=== PATIENT | female | born 1990 | race Caucasian/White ===

== ENCOUNTER → 2022-02-02 14:50 | Outpatient (CLI) | payer BC, SELFPAY ==
[2022-02-02 19:44] LABS: Basophils # 0.1 K/mm3 (0-0.2); Basophils % 0.8 % (0.1-2.0); Eosinophils % 0.3 % (0.1-12.0); Hematocrit 42.5 % (37.0-47.0); Hemoglobin 13.9 g/dL (12.2-16.2); Lymphocytes # 2.2 K/mm3 (0.7-4.5); Lymphocytes % 23.6 % (10-50); Mean Corpuscular HGB Conc 32.7 g/dL (31.8-35.4); Mean Corpuscular Hemoglobin 29.6 pg (27.0-31.2); Mean Corpuscular Volume 90.3 fl (81-99); Mean Platelet Volume 7.8 fl (7.4-10.4); Monocytes # 0.4 K/mm3 (0.1-1.0); Monocytes % 3.8 % (1.7-9.3); Neutrophils # 6.7 K/mm3 (1.8-7.8); Neutrophils % 71.5 % (37.0-80.0); Platelet Count 327 K/mm3 (142-424); White Blood Count 9.4 K/mm3 (4.8-10.8)
[2022-02-02 20:15] LABS: Alanine Aminotransferase 19 U/L (12-78); Albumin Level 4.5 g/dl (3.5-5.0); Albumin/Globulin Ratio 1.6 (1.1-1.8); Alkaline Phosphatase 71 U/L (38-126); Aspartate Amino Transferase 25 U/L (14-36); Blood Urea Nitrogen 15 mg/dl (7-17); Calcium 8.9 mg/dl (8.4-10.2); Carbon Dioxide 26 mmol/L (22.0-30.0); Chloride 101 mmol/L (98-107); Estimated Glomerular Filt Rate 146 ml/min (>60); GFR (African American) 177 ML/MIN (>60); Globulin 2.8 g/dL (1.3-3.2); Glucose 103 mg/dl (74-100); Sodium 142 mmol/L (136-145); Total Protein,Serum 7.3 g/dl (6.3-8.2)
[2022-02-02 20:29] LABS: Bilirubin,Total 0.1 mg/dl (0.2-1.3)
[2022-02-02 20:31] LABS: 25-OH Vitamin D, Total 39.6 ng/mL (30-100)
[2022-02-02 20:38] LABS: Hemoglobin A1C 5.4 % (4.0-6.0)
[2022-02-02 20:46] LABS: Thyroid Stimulating Hormone 0.31 uIU/mL (0.465-4.68)
== END ==
PROVIDERS: PCP Nurse Practitioner; Visit Provider Nurse Practitioner
DX: O99.810 Abnormal glucose complicating pregnancy (principal); F41.8 Other specified anxiety disorders
CPT/HCPCS: 80053; 82306; 83036; 84443; 85025

== ENCOUNTER 2024-11-03 11:15 | Outpatient (CLI) | payer BC, SELFPAY ==
--- OUTSIDE RECORDS SUMMARY | 2018-07-15 13:45 | XMS_ITS | Encounter Summary ---
Author Organization [place] [address] Care Team Providers Care Crop Nutrition Scientist Name Role Phone Nabil Bangura MD Primary Care Provider [phone] Encounter Details Date Type Department Care Team (Late st Contact Info) Description 07/15/2018 1:45 PM EDT Hospital Encounter [facility] NURSE [facility] [place] [address] Social History Tobacco Use Types Packs/Day Years Used Date Smoking Tobacco: Some Days Cigarettes Last attempted to quit: 04/16/2012 Smokeless Tobacco: Former Quit: 04/16/2012 Alcohol Use Standard Drinks/Week Comments No 0 (1 standard drink = 0.6 oz pur e alcohol) NO PHQ-2 Answer Date Recorded PHQ-2 Score 0 04/18/2019 Sexually Active Control Partners Comments Yes Male Comments No Sex and Gender Information Value Date Recorded Sex Assigned at Not on file Legal Sex Female 8:32 AM EDT Gender Identity Not on file Sexual Orientation Not on file COVID-19 Exposure Response Date Recorded In the last month, have you been in contact with someone who was confirmed or suspected to have Coronavirus / COVID-19? No / Unsure 03/19/2021 9:39 AM EST documented as of this encounter Functional Status * Cognitive and Functional Status Question Answer Date of Assessment Author Is the person deaf or does he/she have serious difficulty hearing? No 04/18/2019 4:35 PM Lizet Walker CCMA Is the person blind or does he/she have serious difficulty seeing even when wearing glasses? No 04/18/2019 4:35 PM Lizet Walker CCMA Does this person have seriou s difficulty walking or climbing stairs? No 04/18/2019 4:35 PM Lizet Walker CCMA Does this person have difficulty dressing or bathing? No 04/18/2019 4:35 PM EST Lizet Galvan CCMA * Alcohol Screening Score Answer Date of Assessment Author 0 08/20/2018 7:31 PM Delores Lopez, COMPA * Drug Screening Score Answer Date of Assessment Author 0 08/20/2018 7:31 PM Delores Lopez, COMPA * Question Answer Date of Assessment Author How often do you have a drin k containing alcohol? 0 08/20/2018 7:31 PM Delores Lopez, COMPA * Is the person deaf or does he/she have serious difficulty hearing? Answer Date of Assessment Author No 03/25/2018 5:17 PM Dave Ramey CMA * Is the person blind or does he/she have serious difficulty seeing even when wearing glasses? Answer Date of Assessment Author No 03/25/2018 5:17 PM Dave Ramey CMA * Does this person have serious difficulty walking or climbing stairs? Answer Date of Assessment Author No 03/25/2018 5:17 PM Dave Ramey CMA * Does this person have difficulty dressing or bathing? Answer Date of Assessment Author No 03/25/2018 5:17 PM Dave Ramey CMA * Because of a physical, mental or emotional condition, does this person have difficulty doing errands alone such as visiting a doctor's office or shopping? Answer Date of Assessment Author No 03/25/2018 5:17 PM Dave Ramey CMA * PHQ-9 Total Score Answer Date of Assessment Author 0 04/18/2019 4:35 PM Lizet Walker CCMA * Question Answer Date of Assessment Author Little interest or pleasure in doing things 0 04/18/2019 4:35 PM Lizet Walker CCMA Feeling down, depressed, or hopeless 0 04/18/2019 4:35 PM Lizet Walker CCMA PHQ-2 Total Score 0 04/18/2019 4:35 PM Lizet Walker CCMA documented as of this encounter Mental Status * Cognitive and Functional Status Question Answer Entry Date Author Because of a physical, menta l or emotional condition, does this person have difficulty doing errands alone such as visiting a doctor's office or shopping? No 04/18/2019 4:35 PM EST Lizet Gale CCMA Because of a physical, menta l or emotional condition, does this person have serious difficulty concentrating, remembering or making decisions? No 04/18/2019 4:35 PM EST Lizet Gale CCMA * Because of a physical, mental or emotional condition, does this person have serious difficulty concentrating, remembering or making decisions? Answer Entry Date Author No 03/25/2018 5:17 PM EST Dave Jiménez, PROJECT MANAGER documented in this encounter Plan of Treatment Not on file documented as of this encounter Goals Goal Patient Goal Type Associated Problems Recent Progress Patient-Stated? Author Maintain a healthy diet, exercise regularly and maintain an ideal body weight General No Dayanara Colón LPN Stay Tobacco Free Lifestyle No Dayanara Colón LPN documented as of this encounter Visit Diagnoses Not on filedocumented in this encounter Additional Health Concerns Infection Onset Date Last Indicated Resolved Time COVID-19 01/05/2021 01/05/2021 01/25/2021 10:1 2 PM EDT R/O COVID-19 05/07/2021 05/07/2021 05/08/2021 5:55 PM EST INFLUENZA 05/11/2023 05/11/2023 05/25/2023 10:1 2 PM EST documented as of this encounter Care Teams Crop Nutrition Scientist Relationship Specialty Start Date End Date Nabil Bangura MD [address] [place] [address] PCP - General 04/18/10 05/21/24 documented as of this encounter
[2024-11-03 14:35] LABS: Hematocrit 40.7 % (37.0-47.0); Hemoglobin 13.2 g/dL (12.2-16.2); Immature Granulocytes % 0.5 %; Mean Corpuscular HGB Conc 32.4 g/dL (31.8-35.4); Mean Corpuscular Hemoglobin 29.5 pg (27.0-31.2); Mean Corpuscular Volume 91.1 fl (81-99); Nucleated Red Blood Cells % 0 %; Platelet Count 293 K/mm3 (142-424); Red Blood Count 4.47 M/mm3 (4.20-5.40); Red Cell Distribution Width-SD 42.4 fL; White Blood Count 6.2 K/mm3 (4.8-10.8)
[2024-11-03 14:45] LABS: Albumin Level 4.4 g/dl (3.5-5.0); Chloride 101 mmol/L (98-107); Potassium 3.9 mmoL/L (3.5-5.1); Sodium 134 mmol/L (136-145)
[2024-11-03 14:47] LABS: Alanine Aminotransferase 16 U/L (12-78); Anion Gap 8.9 mEq/L (5-15); Aspartate Amino Transferase 21 U/L (14-36); Blood Urea Nitrogen 14 mg/dl (7-17); Carbon Dioxide 28 mmol/L (22.0-30.0); Creatinine,Serum 0.60 mg/dl (0.52-1.04); Estimated Glomerular Filt Rate 117 ml/min (>60); GFR (African American) 141 ML/MIN (>60)
[2024-11-03 14:48] LABS: Albumin/Globulin Ratio 1.7 (1.1-1.8); Alkaline Phosphatase 56 U/L (38-126); Bilirubin,Total 0.6 mg/dl (0.2-1.3); Calcium 9.2 mg/dl (8.4-10.2); Globulin 2.6 g/dL (1.3-3.2); Glucose 95 mg/dl (74-100); Total Protein,Serum 7.0 g/dl (6.3-8.2)
[2024-11-03 15:21] LABS: Thyroid Stimulating Hormone 0.42 uIU/mL (0.465-4.68)
[2024-11-03 15:40] LABS: Hepatitis C Ab Qual. W/ RFX NEGATIVE (Negative)
[2024-11-03 20:02] LABS: Hemoglobin A1C 5.4 % (4.0-6.0)
[2024-11-04 07:07] LABS: Hepatitis B Surface Antigen Negative (Negative)
--- OUTSIDE RECORDS SUMMARY | 2024-11-04 12:34 | XMS_ITS | Encounter Summary ---
Author Organization [place] [address] Care Team Providers Care Community Relations Police Lieutenant Name Role Phone Nabil Bangura MD Primary Care Provider [phone] Encounter Details Date Type Department Care Team (Late st Contact Info) Description 08/13/2018 Lab Requisition [facility] [place] [id number] Mary Jo Briggs MD [address] [id number] Encounter for supervision of other normal , unspecified trimester Social History Tobacco Use Types Packs/Day Years Used Date Smoking Tobacco: Former Cigarettes Q uit: 04/16/2012 Smokeless Tobacco: Former Quit: 04/16/2012 Alcohol Use Standard Drinks/Week Comments No 0 (1 standard drink = 0.6 oz pur e alcohol) NO Sexually Active Control Partners Comments Yes Male Comments Yes Sex and Gender Information Value Date Recorded Sex Assigned at Not on file Legal Sex Female 8:32 AM EDT Gender Identity Not on file Sexual Orientation Not on file documented as of this encounter Functional Status * Is the person deaf or does [...] Author No 03/25/2018 5:17 PM Dave Ramey amberJAMILA hood * Because of a physical, mental or emotional condition, does this person have difficulty doing errands alone such as visiting a doctor's office or shopping? Answer Date of Assessment Author No 03/25/2018 5:17 PM aDve Ramey amberJAMILA hood documented as of this encounter Mental Status * Because of a physical, mental or emotional condition, does this person have serious difficulty concentrating, remembering or making decisions? Answer Entry Date Author No 03/25/2018 5:17 PM Dave Ramey amberJAMILA hood documented in this encounter Plan of Treatment Not on file documented as of this encounter Goals Goal Patient Goal Type Associated Problems Recent Progress Patient-Stated? Author Maintain a healthy diet, exercise regularly and maintain an ideal body weight General No Dayanara Colón LPN Stay Tobacco Free Lifestyle No Dayanara Colón LPN documented as of this encounter Procedures Procedure Name Priority Date/Time Associated Diagnosis Comments STREP B DNA Routine 08/13/2018 11:14 AM EDT Encounter for supervision of other normal , unspecified trimester documented in this encounter Results * STREP B DNA (08/13/2018 11:14 AM EDT) Strep B DNA Not Detected Not Detected 9 12:39 PM EDT [facility] Swab RECTUM AND VAGINA, CS / Unknown 08/13/2018 11:14 AM EDT 08/13/2018 7:12 PM EDT Narrative [facility] - 08/15/2018 12:39 PM EDT TEST INFORMATION: This qualitative assay utilizes molecular amplification to detect a portion of the Streptococcus agalactiae genome and is intended for a screen of antepartum women in 35-37 weeks gestation. A negative result does not rule out the presence the Group B Strep in concentrations below the limit of detection for the assay. us Mary Jo Briggs MD MICROBIOLOGY - GENERAL ORDERAB LES Final Result [facility] [address] [place] [address] , [place] [address] documented in this encounter Visit Diagnoses Diagnosis Encounter for supervision of other normal , unspecified trimester documented in this encounter Additional Health Concerns Infection Onset Date Last Indicated Resolved Time COVID-01/05/2021 01/05/2021 01/25/2021 10:1 2 PM EDT R/O COVID-19 05/07/2021 05/07/2021 05/08/2021 5:55 PM EST INFLUENZA 05/11/2023 05/11/2023 05/25/2023 10:1 2 PM EST documented as of this encounter Care Teams Community Relations Police Lieutenant Relationship Specialty Start Date End Date Nabil Bangura MD [address] [place] [id number] PCP - General 04/18/10 05/21/24 documented as of this encounter
--- OUTSIDE RECORDS SUMMARY | 2024-11-04 12:34 | XMS_ITS | Clinical Summary ---
Author Organization [facility] Address [address] [place] [address] Phone Care Team Providers Care Internal Controls Manager Name Role Phone Unavailable Primary Care Provider Unavailabl e Allergies No known active allergies Medications azithromycin (ZITHROMAX) 250 mg Oral TabletIndication s:Rhinosinusitis Take 2 tablets (500 mg) on Day 1, followed by 1 tablet (250 mg) once daily on Days 2 through 5 6 Tablet 2 Active Additional Information Patient not taking.Reason: Therapy Completed, Reported on 05/11/2023 loratadine (CLARITIN) 10 mg Oral TabletIndication s:Seasonal allergic rhinitis, unspecified trigger Take 1 Tablet by mouth daily. 30 Tablet 2 2 Active Additional Information Patient not taking.Reason: Therapy Completed, Reported on 05/11/2023 Brompheniramine- Pseudoeph-DM 2-30-10 mg/5 mL Oral SyrupIndications :Acute bronchitis, unspecified organism Take 5 mL by mouth every 4 hours as needed (Cough, Nasal Congestion, Allergies). 240 mL 4 Active Active Problems Problem Noted Date Diagnosed Date Previous delivery affecting 0 01/13/2016 History of section 11/21/2014 Resolved Problems Problem Noted Date Diagnosed Date Resolved Date Acute bacterial conjunctivitis of both eyes 03/22/2015 04/26/2015 Failure to progress in labor , delivered, current hospitalization 04/11/2013 03/22/2015 macrosomia, delivered, current hospitalization 04/11/2013 03/22/2015 Irregular labor 04/09/2013 03/22/2015 40 weeks gestation of 04/01/2013 03/22/2015 Labor, false ([place]), antepartum 04/01/2013 03/22/2015 27 weeks gestation of 12/29/2012 03/22/2015 uterine contractions, antepartum 12/29/2012 03/22/2015 Immunizations Immunization Administration Dates Next Due Rho (D) Immune Globulin 08/31/2018,06/26,01/15/2016,11/10/2015,09/10/19 15,01/08/2013 Tdap 08/30/2018 Surgical History Surgery Date Site/Laterality Comments SECTION 04/11/2013 Abdomen/N/A primary section for failure to pprogress with low transverse skin incision at 0737 and low transverse uterine incision at 0744 ; Surgeon: Sena Rodriges MD; Location: [facility]; Service: Gynecology SECTION 11/20/2014 Abdomen/N/A REPEAT SECTION (39.1)with a low transverse uterine incision at 0827; Surgeon: Karoline Duong MD; Location: [facility]; Service: Gynecology SECTION 01/14/2016 Abdomen/N/A REPEAT SECTION (40), low transverse uterine incision at 0755; Surgeon: Karoline Duong MD; Location: [facility]; Service: Gynecology SECTION 08/30/2018 Abdomen/N/A REPEAT DELIVERY low transverse uterine incision at 0844; Surgeon: Mary Jo Briggs MD; Location: [facility]; Service: Gynecology Medical History Medical History Date Comments Anxiety Thyroid disease only with 3rd pr egnancy Anemia taking iron Family History Medical History Relation Name Comments Diabetes Father High Blood Pressure Father Alzheimer's Disease Maternal Grandmother Diabetes Maternal Grandmother Substance Abuse Mother Diabetes Sister 1 gestational Anesth Problems Neg Hx Relation Name Status Comments Brother Alive Father Alive Maternal Grandfather Maternal Grandmother Alive Mother Alive Paternal Grandfather Paternal Grandmother Sister 1 Alive Sister 2 Alive Social History Tobacco Use Types Packs/Day Years [...] on file Sexual Orientation Not on file Obstetrics History Para Term AB IAB SAB Ectopic Multiple Livin g Live Births 5 5 4 1 0 5 5 Date Outcome GA Total Labor Labor/2nd/3rd Weight Sex Type Anes PTL Yvette A1 A5 Name Clin 2007 36w 0d 5 lb 13 oz (2.637 kg) M Epidur al Y Livin g Delivery Location:[facility] 2012 Term 41w 5d 9 lb 2 oz (4.139 kg) M CSP Epidur al N Livin g 7 9 LOOMI S,MAR MIGUELANGEL BABY A Gwen Rodriges MD Delivery [facility] Comments:none observed 2014 Term 39w 1d 0h 01m 0h 01m 7 lb 9 oz (3.43 kg) F FINANCIAL SERVICES OFFICER Spinal N Livin g 8 9 Karoline Calix MD Complications:Status post re peat low transverse section Delivery Location:[facility] Comments:none 2015 Term 39w 1d 0h 01m 0h 01m 7 lb 13 oz (3.544 kg) M FINANCIAL SERVICES OFFICER Spinal N Livin g 9 9 ABBY ,ROLLY SSA BABY Karoline Calix MD Complications:Status post re peat low transverse section Delivery Location:[facility] Comments:none 2018 Term 39w 2d 0h 02m 0h 02m 7 lb 2 oz (3.232 kg) M FINANCIAL SERVICES OFFICER Spinal N Livin g 9 9 DEGLO W,THO LOZADAA Mary Jo Elizondo MD Complications:Status post re peat low transverse section Delivery [facility]) Last Filed Vital Signs Vital Sign Reading Time Taken Comments Blood Pressure 110/70 05/21/2023 5:47 PM EST Pulse 91 05/21/2023 5:47 PM EST Temperature 36.8 C (98.3 F) 05/21/2023 5:47 PM EST Respiratory Rate 16 05/21/2023 5:47 PM EST Oxygen Saturation 98% 05/21/2023 5:47 PM EST Inhaled Oxygen Concentration - - Weight 60.6 kg (133 lb 9.6 oz) 05/21/2023 5:47 P M EST Height 157.5 cm (5' 2 ) 05/21/2023 5:47 PM EST Body Mass Index 24.44 05/21/2023 5:47 PM EST Plan of Treatment Health Maintenance Due Date Last Done Comments Annual Wellness Exam 11/06/1995 Hepatitis B Vaccine (1 of 3 - 19+ 3-dose series) 11/06/2011 Pneumococcal Vaccine 0-49 (1 of 2 - PCV) 11/06/2011 Pap Smear 06/28/2018 06/29/2015, 05/12/2014 Cervical Cancer Screening 2022 HPV/Pap Cotest 2022 COVID-19 Vaccine ( - 2023-2 5 season) 2023 Influenza Vaccine (#1) 2024 6 (Declined), 04/22/2014 (Postponed) DTaP/TDaP/Td (2 - Td or Tdap) 08/30/2028 08/30/2018 Meningococcal B Vaccine Aged Out No l onger eligible based on patient's age to complete this topic Goals Goal Patient Goal Type Associated Problems Recent Progress Patient-Stated? Author Maintain a healthy diet, exercise regularly and maintain an ideal body weight General No Dayanara Colón LPN Stay Tobacco Free Lifestyle No Dayanara Colón LPN Insurance [employer] P[facility] PPO Advance Directives For more information, please contact: [phone] * Full Code (Latest Code Status on File) Date Activated Date Inactivated Comments 08/30/2018 6:04 AM 09/01/2018 7:18 PM * Full Code Date Activated Date Inactivated Comments 03/27/2018 11:14 PM 03/28/2018 6:57 PM * Full Code Date Activated Date Inactivated Comments 01/16/2016 9:45 AM 01/16/2016 4:05 PM * Full Code Date Activated Date Inactivated Comments 01/14/2016 6:20 AM 01/14/2016 8:49 AM * Full Code Date Activated Date Inactivated Comments 11/21/2014 12:14 PM 11/22/2014 7:35 PM
== END 2024-11-03 23:59 | disposition home or self-care (01) ==
LOC: LAB.DROPOF 11-04 12:32
PROVIDERS: PCP Nurse Practitioner; Visit Provider Nurse Practitioner
DX: F41.8 Other specified anxiety disorders (principal); O99.810 Abnormal glucose complicating pregnancy; Z11.59 Encounter for screening for other viral diseases
CPT/HCPCS: 80053; 80074; 83036; 84443; 85025; 87340; 87389